=== PATIENT | female | born 1965 | race Caucasian/White ===

== ENCOUNTER 2023-06-01 10:47 | Outpatient (CLI) | payer OTHER | END 2023-06-01 10:56 | disposition home or self-care (01) | LOC: RAD 10:47 | PROVIDERS: ATTEND Physical Medicine & Rehabilitation | DX: M25.561 Pain in right knee (principal); M25.562 Pain in left knee ==

== ENCOUNTER 2023-07-23 12:57 | Outpatient (CLI) | payer OTHER | END 2023-07-23 13:00 | disposition home or self-care (01) | LOC: NUCLEAR 12:57 | PROVIDERS: ATTEND Physical Medicine & Rehabilitation | DX: M81.8 Other osteoporosis without current pathological fracture (principal) ==